=== PATIENT | female | born 1940 | race Two or more races ===

== ENCOUNTER 2020-03-22 15:15 | Emergency (ER) | payer MEDICAID, OTHER ==
[~2020-03-22] VITALS: Ht 162.6 cm; Wt 77.1 kg
[~2020-03-22 15:15] MED LIST: B COTAB20 OR; CRAN1TAB2 OR; GABA300C10; GLYB5TAB8 OR; METF-370 OR; OMEP20TA44 OR; SIMV-8
[2020-03-22 15:24] VITALS: BP 178/85
== END 2020-03-22 17:14 | disposition left against medical advice (07) ==
LOC: ER 15:15
DX: R05 Cough (principal); R50.9 Fever, unspecified; Z53.21 Procedure and treatment not carried out due to patient leaving prior to being seen by health care provider